=== PATIENT | female | born 1990 | race American Indian/Alaskan Native ===

== ENCOUNTER 2017-10-13 12:07 | Emergency (ER) | payer MEDICAID ==
[2017-10-13 13:00] VITALS: BP 126/74
[2017-10-13] MEDS ORDERED: TYLENOL PO ONE (14:47)
[2017-10-13] MEDS ORDERED: ROCEPHIN IM STA (14:48)
--- NOTE | 2017-10-13 14:48 | Emergency Department Report ---
ED Animal Bite HPI - General Chief Complaint: Skin/Abscess/Foreign Body Stated Complaint: PREG, SPIDER BITE ON RIGHT ARM,SWOLLEN Time Seen by Provider: 10/13/17 13:56 Source: patient Mode of arrival: Ambulatory Limitations: No Limitations - History of Present Illness Initial Comments: Patient reported that she was bit by a spider couple days ago. She said her right forearm is swollen painful and red at spider bite site. She denies any fever or chills. Denies any nausea or vomiting. Denies any restriction in movement of her right forearm. She said pain is 8 out of 10 and feels achy. Denies any radiation of pain. Patient is 9 months and scheduled to be induced this upcoming Monday. She does have [employer]. Patient is not having any related issue at present. She says she did not call her [employer] and let [employer] and let [employer] know of spider bite. Complaint: animal bite, animal-related injury Onset/Timin -: days(s) Right: Forearm (right forearm redness, swelling and pain from spider bite, but) Animal: other (spider bite) Description: appeared well (the same thing that happened to The) Mechanism: bite ( bleed that exact same spider bite) Pain Description: constant Severity scale (0 -10): 8 Context: possible exposure while a Associated Symptoms: erythema, rash. denies: discharge from wound, bleeding, fever, chills, loss of consciousness, cough, headache, diaphoresis, shortness of breath Treatments Prior to Arrival: other (none) - Related Data Patient Tetanus UTD: No Previous Rx's Medication Instructions Recorded Last Taken Type Acetaminophen [Tylenol] 500 mg PO Q8H PRN 4 Days #12 tablet 10/13/17 Unknown Rx Cephalexin [Keflex] 500 mg PO Q8HR 10 Days #30 cap 10/13/17 Unknown Rx Allergies Allergy/AdvReac Type Severity Reaction Status Date / Time No Known Allergies Allergy Unverified 10/13/17 12:59 ED Review of Systems ROS: Stated complaint: PREG, SPIDER BITE ON RIGHT ARM,SWOLLEN Other details as noted in HPI Comment: All other systems reviewed and negative Constitutional: no symptoms reported ENT: denies: throat pain, congestion Respiratory: no symptoms reported Cardiovascular: denies: chest pain, palpitations, dyspnea on exertion, edema, syncope Gastrointestinal: denies: abdominal pain, nausea, vomiting, diarrhea Musculoskeletal: arthralgia. denies: back pain, joint swelling, myalgia Skin: rash Neurological: denies: headache, weakness, numbness, paresthesias, confusion ED Past Medical Hx - Past Medical History Previous Medical History?: No - Surgical History Past Surgical History?: No - Family History Family history: no significant - Social History Smoking Status: Never Smoker Substance Use Type: None - Medications Home Medications: Home Medications Medication Instructions Recorded Confirmed Last Taken Type Acetaminophen [Tylenol] 500 mg PO Q8H PRN 4 Days #12 tablet 10/13/17 Unknown Rx Cephalexin [Keflex] 500 mg PO Q8HR 10 Days #30 cap 10/13/17 Unknown Rx ED Physical Exam - General Limitations: No Limitations General appearance: alert, in no apparent distress - Head Head exam: Present: atraumatic, normocephalic, normal inspection - Eye Eye exam: Present: normal appearance, PERRL, EOMI. Absent: periorbital swelling , periorbital tenderness Pupils: Present: normal accommodation - ENT ENT exam: Present: normal exam, normal orophraynx, mucous membranes moist - Neck Neck exam: Present: normal inspection, full ROM, other (no C-spine tenderness). Absent: tenderness, meningismus, lymphadenopathy - Respiratory Respiratory exam: Present: normal lung sounds bilaterally. Absent: respiratory distress, wheezes, rales, rhonchi, stridor, chest wall tenderness, accessory muscle use, decreased breath sounds, prolonged expiratory - Cardiovascular Cardiovascular Exam: Present: regular rate, normal rhythm, normal heart sounds. Absent: systolic murmur, diastolic murmur - Extremities Exam Extremities exam: Present: full ROM, tenderness (posterior proximal right forearm), normal capillary refill, other (patient with good color, sensation and movement, temperature 0 extremities. +2 pulses to all extremities. No neurovascular compromise. No clubbing, cyanosis or edema.). Absent: normal inspection, pedal edema, joint swelling, calf tenderness - Expanded Upper Extremity Exam Right General: Present: other (PT with erythema, tenderness to palpate to right proximal posterior forearm). Absent: normal inspection Shoulder Exam: Present: normal inspection, full ROM. Absent: tenderness, swelling, abrasion, laceration, ecchymosis, deformity, crepidus, dislocation, erythema, tenderness over AC joint Upper Arm exam: Present: normal inspection, full ROM. Absent: tenderness, swelling, abrasion, laceration, ecchymosis, deformity, crepidus, dislocation, erythema Elbow exam: Present: normal inspection, full ROM. Absent: tenderness, swelling , abrasion, laceration, ecchymosis, deformity, crepidus, dislocation, erythema, effusion, pain w/ pronation/supination, tenderness over radial head Forearm Wrist exam: Present: full ROM, tenderness (tenderness to palpate to the right proximal posterior forearm at spider bite site.), swelling (right proximal posterior forearm), erythema (Rt proximal posterior forearm). Absent: normal inspection, abrasion, laceration, ecchymosis, deformity, crepidus, dislocation, tenderness over anatomical snuff box, pain with axial thumb loading Hand Wrist exam: Present: normal inspection, full ROM. Absent: tenderness, swelling, abrasion, laceration, ecchymosis, deformity, crepidus, dislocation, erythema, amputation, nail avulsion, subungual hematoma Neuro motor exam: Present: wrist extension intact, thumb opposition intact, thumb IP flexion intact, thumb adduction intact, fingers 2-5 abduction intact Neurosensory exam: Present: 2-point discrimination, radial nerve intact, ulnar nerve intact, median nerve intact Vascular: Present: normal capillary refill, radial pulse, brachial pulse, ulnar pulse. Absent: vascular compromise, Pallo, pulse deficit radial art, pulse deficit ulnar art, pulse deficit brachial art - Back Exam Back exam: Present: normal inspection, full ROM. Absent: tenderness - Neurological Exam Neurological exam: Present: alert, oriented X3, normal gait, reflexes normal. Absent: motor sensory deficit - Psychiatric Psychiatric exam: Present: normal affect, normal mood - Skin Skin exam: Present: warm, dry, intact, rash, erythema - Expanded Skin Exam Expanded Type of lesion: Present: bite/sting, other (redness, erythema and swelling to right proximal forearm) Distribution of rash: other (right proximal posterior forearm) Description of rash: Present: size (4 x 4 centimeter), tenderness, erythematous , swelling, indurated (minimal induration with no fluctuance), other (No stinger noted to spider bite site). Absent: confluent, bullous, petechial, purpuic, urticarial, crusting, discharge, fluctuant ED Course Vital Signs 12/01/17 12:57 Temperature 99.2 F Pulse Rate 89 Respiratory 18 Rate Blood Pressure 126/74 O2 Sat by Pulse 100 Oximetry - Reevaluation(s) Reevaluation #1: 10/13/17 15:52 She was given Tylenol 650 mg prior to presentation to triage area for pain. She was given Rocephin 1 g IM and Boostrix vaccine 0.5 mL in emergency room without any adverse reaction. Critical care attestation.: If time is entered above; I have spent that time in minutes in the direct care of this critically ill patient, excluding procedure time. ED Disposition Clinical Impression: Cellulitis of right forearm, Arthralgia of right forearm Spider bite Qualifiers: Encounter type: initial encounter Injury intent: accidental or unintentional Qualified Code(s): T63.301A - Toxic effect of unspecified spider venom, accidental (unintentional), initial encounter Disposition: - TO HOME OR SELFCARE Is pt being admited?: No Does the pt Need Aspirin: No Condition: Stable Instructions: Cellulitis (ED), Insect Bite or Sting (ED), Arthralgia (ED) Additional Instructions: Keep affected area clean and dry. Followed discharge instruction on acute wound care . Please return to emergency room if you develop increasing redness, streaking, fever, difficulty moving in and the left forearm and increase in pain. Follow-up the [employer] Please call your Primary care physician and schedule an appointment for followup visit in 3 days. Prescriptions: Acetaminophen [Tylenol] 500 mg PO Q8H PRN 4 Days #12 tablet PRN Reason: Pain Cephalexin [Keflex] 500 mg PO Q8HR 10 Days #30 cap Referrals: COLIN PFEIFFER [Other] - 10/16/17 Forms: Work/School Release Form(ED) ED Medical Decision Making - Medical Decision Making ED Course: Patient here reports that she has spider bite to Rt forearm x 2 days. reports redness, pain and swelling to site . Physical findings for cellulitic area to right proximal posterior forearm. Patient has no neurovascular compromise, normal strength to all extremities, pulses are 2+ in all extremities. Cellulitic areas localized to side without any streaking. Patient with temp of 99.2 but she denies any chills. She was given Tylenol 650 mg in triage here for pain which relieved her pain. Patient was also given Rocephin 1 g IM and Boostrix 0.5 mL and emergency room without any adverse reaction. Patient is 9 months and scheduled to be induced on 2016. I told her that she will need to call her [employer] to let them know that she was treated in emergency room for spider bite. I discussed the patient that I'll put her on Keflex which is safe for the baby and she can take plain Tylenol as prescribed for pain. I discussed with her if she develop any fever, chills, increasing redness and swelling with straight can, drainage and restriction in movement to her right upper extremity is to return to the ED [facility] otherwise follow-up with her primary care physician in Monday for spider bite. It was undescended discharge instruction and treatment plan and discharged home a prescription for Keflex and Tylenol.
[2017-10-13] MEDS ORDERED: BOOSTRIX IM ONE (14:49)
[2017-10-13] MEDS ORDERED: XYLOCAINE 1% MPF 5 mL ONE (15:26)
== END 2017-10-13 16:19 | disposition home or self-care (01) ==
LOC: ED 12:07
DX: O26.893 Other specified pregnancy related conditions, third trimester (principal); L03.113 Cellulitis of right upper limb; T63.301A Toxic effect of unspecified spider venom, accidental (unintentional), initial encounter; Y92.89 Other specified places as the place of occurrence of the external cause; Z3A.00 Weeks of gestation of pregnancy not specified
CPT/HCPCS: 90471; 90715; 96372; 99282; J0696